=== PATIENT | female | born 1985 | race African-American/Black ===

== ENCOUNTER 2016-07-29 05:55 | Emergency (ER) | payer OTHER ==
[~2016-07-29] VITALS: Ht 162.6 cm; Wt 61.5 kg
[2016-07-29 05:58] VITALS: Ht 162.6 cm; Wt 61.5 kg
[2016-07-29] MEDS ORDERED: ONDANSETRON (ODT) 4 MG TAB ODT STA (06:39)
--- NOTE | 2016-07-29 06:43 | ERD ---
ER Documentation Chief Complaint Date/Time DATE: 07/29/16 TIME: 06:40 Chief Complaint vomited 4x since 2 hours ago "feels bloated" HPI 31-year-old female presents the emergency department complaining of abdominal bloating, vomiting 4 since 2 hours ago, and reports of bright red blood in her vomit. Patient notes a history of gastric ulcer disease. Patient also notes cholecystectomy within the past year. Patient states she also is feeling a sensation of a bump in the midline of her abdomen. 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 ROS All systems reviewed and are negative except as per history of present illness. Allergies Allergies: Coded Allergies: No Known Allergy (Unverified , 07/06/13) Physical Exam Vitals Vital Signs Date Time Temp Pulse Resp B/P Pulse Ox O2 Delivery O2 Flow Rate FiO2 07/29/16 05:58 97.6 93 20 121/72 100 Physical Exam Const: Well-developed, well-nourished, no acute distress Head: Atraumatic Eyes: Normal Conjunctiva ENT: Normal External Ears, Nose and Mouth. Neck: Full range of motion..~ No meningismus. Resp: Clear to auscultation bilaterally Cardio: Regular rate and rhythm, no murmurs Abd: Soft, non tender, non distended. Normal bowel sounds Skin: No petechiae or rashes Back: No midline or flank tenderness Ext: No cyanosis, or edema Neur: Awake and alert Psych: Normal Mood and Affect Procedures/MDM Although patient reports complaints of vomiting, bloating, hematemesis, and an abdominal mass, patient stated that she did not have time to stay for an assessment. I advised the patient to stay so that a proper workup can be performed to evaluate her vomiting. Patient however refused and stated that she would follow-up at another time. Provided the patient with 1 dose of Zofran prior to leaving. Patient does not appear to be experiencing any life- threatening illness at this time however I advised the patient to return here as soon as possible if symptoms continue. RADHA ODOM PA-C Jul 29, 2016 06:43
[2016-07-29] MEDS ORDERED: LOPE2CAP PO (06:45)
[2016-07-29] MEDS ORDERED: ACET1TAB40 PO (06:45)
[2016-07-29] MEDS ORDERED: ONDA4TAB14 PO (06:45)
[2016-07-29] MEDS ORDERED: FAMO20TA18 PO (06:46)
[2016-07-29] MEDS ORDERED: OMEP20CA16 PO (06:47)
[2016-07-29 06:54] VITALS: TEMP 98.2
== END 2016-07-29 06:55 | disposition home or self-care (01) ==
LOC: FTE 05:55
DX: R11.10 Vomiting, unspecified (principal)
CPT/HCPCS: Z7502; Z7610; 99283